=== PATIENT | female | born 1955 | race Caucasian/White ===

== ENCOUNTER 2024-01-10 19:27 | Emergency (ER) | payer MEDICARE, OTHER ==
[~2024-01-10] VITALS: Ht 170.2 cm; Wt 93.0 kg
[2024-01-10 20:12] LABS: BASOPHILS % (AUTO) 0.7 % (0.0-2.0); DIFFERENTIAL COMMENT 0; EOSINOPHILS # (AUTO) 0.1 K/uL (0.0-0.7); EOSINOPHILS % (AUTO) 2.3 % (0.0-7.0); HEMOGLOBIN 11.6 g/dL (10.9-14.3); LYMPHOCYTES # (AUTO) 0.9 K/uL (0.8-4.8); LYMPHOCYTES % (AUTO) 29.6 % (20.5-51.5); MEAN CORPUSCULAR HEMOGLOBIN 34.8 uug (24.7-32.8); MEAN CORPUSCULAR HGB CONC 35 g/dL (32.3-35.6); MEAN CORPUSCULAR VOLUME 98.8 fL (75.5-95.3); MONOCYTES # (AUTO) 0.3 K/uL (0.1-1.30); MONOCYTES % (AUTO) 8.7 % (0.0-11.0); NEUTROPHILS # (AUTO) 1.7 K/uL (1.8-8.9); NEUTROPHILS % (AUTO) 58.7 % (38.5-71.5); PLATELET COUNT (AUTO) 86 K/uL (179-408); RED BLOOD CELL COUNT(AUTO) 3.34 MIL/uL (3.63-4.92); RED CELL DISTRIBUTION WIDTH 15.8 % (12.3-17.7); WHITE BLOOD COUNT (AUTO) 2.9 K/uL (3.8-11.8)
[2024-01-10 20:24] LABS: CALCIUM 9.2 mg/dL (8.5-10.1); CREATININE 0.9 mg/dL (0.6-1.3); POTASSIUM 4.3 mmol/L (3.5-5.1)
[2024-01-10 20:30] LABS: ALBUMIN 2.8 g/dL (3.4-5.0); BILIRUBIN,DIRECT 0.5 mg/dL (0.0-0.2); BILIRUBIN,TOTAL 1.6 mg/dL (0.2-1.0); TOTAL PROTEIN, SERUM 6.4 g/dL (6.4-8.2)
[2024-01-10 21:05] VITALS: BP 109/58; O2SAT 97
[2024-01-10 21:59] LABS: EOSINOPHILS % (MANUAL) 3 % (0-8); LYMPHOCYTES % (MANUAL) 31 % (20-40); MONOCYTES % (MANUAL) 5 % (2-10); NEUTROPHILS % (MANUAL) 61 % (42-75)
[2024-01-10 22:00] LABS: ANISOCYTOSIS 1+; PLATELET ESTIMATE MARKED DECREASED
== END 2024-01-10 21:05 | disposition home or self-care (01) ==
LOC: ER 19:33
DX: K62.5 Hemorrhage of anus and rectum (principal); R73.9 Hyperglycemia, unspecified; F17.200 Nicotine dependence, unspecified, uncomplicated; Z98.890 Other specified postprocedural states; Z91.040 Latex allergy status
CPT/HCPCS: 36415; 70030-TC; 85025; 85730; 93005; A4606; A4663

== ENCOUNTER 2024-07-26 19:01 | Emergency (ER) | payer MEDICARE, OTHER ==
[~2024-07-26] VITALS: Ht 170.2 cm; Wt 92.5 kg
[2024-07-26 20:10] LABS: *BLOOD, URINE 3+ (NEGATIVE); *CLARITY,URINE SLIGHTLY CLOUDY (CLEAR); *COLOR,URINE YELLOW (YELLOW); *KETONES,URINE NEGATIVE (NEGATIVE); *PROTEIN,URINE 2+ (NEGATIVE); *UROBILINOGEN,URINE 0.2 E.U./dl (NORMAL); LEUKOCYTE ESTERASE ,URINE 1+ (NEGATIVE); NITRITE, URINE NEGATIVE (NEGATIVE)
[2024-07-26 20:11] LABS: HEMOGLOBIN 9.4 g/dL (10.9-14.3); RED BLOOD CELL COUNT(AUTO) 3.35 MIL/uL (3.63-4.92); WHITE BLOOD COUNT (AUTO) 3.9 K/uL (3.8-11.8)
[2024-07-26 20:14] LABS: *BILIRUBIN,URIN 1+ (NEGATIVE); UGLUCOSE 2+ (NEGATIVE)
[2024-07-26 20:15] LABS: WBC,URINE 0-3 /HPF (0-3)
[2024-07-26 20:17] LABS: BASOPHILS % (AUTO) 0.7 % (0.0-2.0); DIFFERENTIAL COMMENT 0; EOSINOPHILS # (AUTO) 0.1 K/uL (0.0-0.7); EOSINOPHILS % (AUTO) 1.4 % (0.0-7.0); HEMATOCRIT 28.9 % (31.2-41.9); LYMPHOCYTES # (AUTO) 0.8 K/uL (0.8-4.8); LYMPHOCYTES % (AUTO) 21.1 % (20.5-51.5); MEAN CORPUSCULAR HEMOGLOBIN 27.9 uug (24.7-32.8); MEAN CORPUSCULAR HGB CONC 32 g/dL (32.3-35.6); MEAN CORPUSCULAR VOLUME 86.2 fL (75.5-95.3); MONOCYTES # (AUTO) 0.5 K/uL (0.1-1.30); MONOCYTES % (AUTO) 12.6 % (0.0-11.0); NEUTROPHILS # (AUTO) 2.5 K/uL (1.8-8.9); NEUTROPHILS % (AUTO) 64.2 % (38.5-71.5); PLATELET COUNT (AUTO) 97 K/uL (179-408); RED CELL DISTRIBUTION WIDTH 19.9 % (12.3-17.7)
[2024-07-26 20:19] LABS: CALCIUM 9.3 mg/dL (8.5-10.1); CARBON DIOXIDE 24 mmol/L (21-32); CHLORIDE 108 mmol/L (98-107); CREATININE 0.9 mg/dL (0.6-1.3); GLUCOSE 248 mg/dL (74-106); SODIUM SERUM 141 mmol/L (136-145); UREA NITROGEN, BLOOD 14 mg/dL (7-18)
[2024-07-26 20:27] LABS: ALANINE AMINOTRANSFERASE 33 U/L (14-59); ALKALINE PHOSPHATASE 80 U/L (50-136); ASPARTATE AMINOTRANSFERASE 24 U/L (15-37); BILIRUBIN,DIRECT 0.5 mg/dL (0.0-0.2); BILIRUBIN,TOTAL 1.8 mg/dL (0.2-1.0); TOTAL PROTEIN, SERUM 6.2 g/dL (6.4-8.2)
[2024-07-26] MEDS: IV NORMAL SALINE 500 ML IV ONE (20:42)
[2024-07-26] MEDS: PHENAZOPYRIDINE HCL 100 MG TABLET PO ONE (21:01)
[2024-07-26] MEDS: CEphaleXIN 500 MG CAPSULE PO ONE (21:01)
[2024-07-26] MEDS ORDERED: PHEN-704 PO (22:04)
[2024-07-26] MEDS ORDERED: FLUC150T PO (22:04)
[2024-07-26] MEDS ORDERED: NITR100C11 PO (22:04)
[2024-07-26 22:19] VITALS: BP 138/69; O2SAT 98
== END 2024-07-26 22:19 | disposition home or self-care (01) ==
LOC: ER 19:03
DX: D64.9 Anemia, unspecified (principal); R73.9 Hyperglycemia, unspecified; R42 Dizziness and giddiness; R55 Syncope and collapse; N39.0 Urinary tract infection, site not specified; F17.200 Nicotine dependence, unspecified, uncomplicated; Z98.890 Other specified postprocedural states; Z79.899 Other long term (current) drug therapy; Z91.040 Latex allergy status
CPT/HCPCS: 99284; 96360; 80076; 80048; 81001; 85025; 85730; 86850; 86900; 86901; 84484; 36415; 93005; 87086; J7040; A4606; A4663